=== PATIENT | female | born 1985 | race Caucasian/White ===

== ENCOUNTER 2016-09-09 12:47 | Emergency (ER) | payer OTHER ==
[2016-09-09 13:41] VITALS: BP 146/58
[2016-09-09] MEDS ORDERED: Ketorolac INJ* 60 MG/2 ML VIAL IM ONE (13:54)
--- NOTE | 2016-09-09 13:58 | UC ---
Back Pain HPI - HPI Summary HPI Summary: patient fell about 90 minutes ago, has bilateral leg pain and cannot get comfortable. has hx of lumbar suregery on l4 and l5 - History of Current Complaint Chief Complaint: UCBackPain Stated Complaint: LEGS TINGLING,LOW BACK COMPLAINT (FALL) Time Seen by Provider: 09/09/16 13:52 Hx Last Menstrual Period: 08/10/16 - Allergies/Home Medications Allergies/Adverse Reactions: Allergies Allergy/AdvReac Type Severity Reaction Status Date / Time Amoxicillin Allergy Severe Hives Verified 09/09/16 13:42 Clavulanic Acid Allergy Severe GI Verified 09/09/16 13:42 [From Augmentin] symptoms,fever Adhesive Tape Allergy Intermediate Rash Verified 09/09/16 13:42 Clindamycin Allergy Mild Nausea And Verified 09/09/16 13:42 Vomiting Tramadol Allergy N/V Verified 09/09/16 13:42 Home Medications: Home Medications Sertraline* [Zoloft*] 100 mg PO DAILY 09/09/16 [History Confirmed 09/09/16] hydrOXYzine HCL TAB* [Atarax 10 MG TAB*] 10 - 20 mg PO TID PRN 09/09/16 [ History Confirmed 09/09/16] traZODone TAB* [Desyrel TAB*] 150 mg PO BEDTIME 09/09/16 [History Confirmed ] PMH/Surg Hx/FS Hx/Imm Hx Endocrine History Of: Reports: Diabetes - TYPE 2, CONTROLLED WITH DIET Denies: Thyroid Disease, Hyperthyroidism, Hypothyroidism, Dyslipidemia Cardiovascular History Of: Denies: Cardiac Disorders, Hypertension, Pacemaker/ICD, Myocardial Infarction , Congestive Heart Failure, Atrial Fibrillation, Deep Vein Thrombosis, Bleeding Disorders Respiratory History Of: Denies: COPD, Asthma, Bronchitis, Pneumonia, Pulmonary Embolism GI/ History Of: Denies: Gastroesophageal Reflux, Ulcer, Gastrointestinal Bleed, Gall Bladder Disease, Kidney Stones, Diverticulitis, Renal Disease, Urosepsis Neurological History Of: Reports: Migraine - R/T SLEEP APNEA Denies: TIA, CVA, Dementia, Seizures Psychological History Of: Reports: Anxiety - ON MEDS, Depression - ON MEDS Cancer History Of: Denies: Lung Cancer, Colorectal Cancer, Breast Cancer, Prostate Cancer, Cervical Cancer Other History Of: Anticoagulant Therapy Negative For: HIV, Hepatitis B, Hepatitis C - Surgical History Surgical History: Yes Surgery Procedure, Year, and Place: 1996 TONSILLECTOMY AND ADENOIDECTOMY, [place] 2003 [facility]CTION, [facility] WISDOM TEETH EXTRACTION, [id number] LEFT KNEE SURGERY, [place] LOWER LUMBAR SURGERY September. ganglion cyst removed Right wrist summer 2014. R wrist surgery. GANGLION 2003, [facility] - Family History Known Family History: Positive: None, Hypertension, Diabetes - Social History Alcohol Use: Occasionally Substance Use Type: None Smoking Status (MU): Heavy Every Day Tobacco Smoker Type: Cigarettes Amount Used/How Often: <1/2 ppd Length of Time of Smoking/Using Tobacco: 15 YEARS Have You Smoked in the Last Year: Yes Household Exposure Type: Cigarettes - Immunization History Most Recent Influenza Vaccination: 03/2013 Review of Systems Constitutional: Negative Skin: Negative Eyes: Negative ENT: Negative Respiratory: Negative Cardiovascular: Negative Gastrointestinal: Negative Genitourinary: Negative Motor: Negative Neurovascular: Negative Musculoskeletal: Arthralgia, Decreased ROM, Edema, Myalgia Neurological: Negative Psychological: Negative All Other Systems Reviewed And Are Negative: Yes Physical Exam Triage Information Reviewed: Yes Appearance: Well-Nourished, Ill-Appearing, Pain Distress Vital Signs: Initial Vital Signs Temp 98.8 F 09/09/16 13:31 Pulse 81 09/09/16 13:31 Resp 18 09/09/16 13:31 BP 146/58 09/09/16 13:31 Pulse Ox 98 09/09/16 13:31 Vital Signs Reviewed: Yes Eye Exam: Normal Eyes: Positive: Conjunctiva Clear ENT Exam: Normal ENT: Positive: Normal ENT inspection, Hearing grossly normal, Pharynx normal, TMs normal Dental Exam: Normal Neck exam: Normal Neck: Positive: Supple, Nontender, No Lymphadenopathy Respiratory Exam: Normal Respiratory: Positive: Chest non-tender, Lungs clear, Normal breath sounds Cardiovascular Exam: Normal Cardiovascular: Positive: RRR, No Murmur, Pulses Normal Abdominal Exam: Normal Abdomen Description: Positive: Nontender, No Organomegaly, Soft Bowel Sounds: Positive: Present Musculoskeletal Exam: Normal Musculoskeletal: Positive: Strength Intact - able to raise legs and bear weight on both legs, numbness down right thigh, No Edema, ROM Limited @ - low back ext and flx Neurological Exam: Normal Neurological: Positive: Alert, Muscle Tone Normal Psychological Exam: Normal Skin Exam: Normal Back Pain Course/Dx - Course Course Of Treatment: hx obtained, exam performed, medication reviewed. xray obtained, urine preg negative, toradol given for pain relief with noticable relief. flexeril prescribed. recommend follow up with back surgeon if pain persists. - Differential Dx/Diagnosis Differential Diagnosis/HQI/PQRI: Arthritis, Herniated Disc, Strain, Sprain Provider Diagnoses: lumbar back spasm with radicuopathy. abnormal gait Discharge - Discharge Plan Condition: Stable Disposition: HOME Prescriptions: Cyclobenzaprine TAB* [Flexeril 10 MG TAB*] 10 mg PO TID PRN #21 tab PRN Reason: Spasms Additional Instructions: Take the medication as prescribed. Continue with your back exercises as tolerated. ice and heat as tolerated. Follow up with Dr Acevedo if pain and numbness persist.
--- NOTE | 2016-09-09 14:27 | RAD ---
HISTORY: Fall, numbness and tingling in lower extremities COMPARISONS: February 28, 2010 VIEWS: 5 , Frontal, lateral, coned-down lateral sacral, and bilateral oblique views of the lumbar spine. FINDINGS: ALIGNMENT: There is straightening of the lumbar lordosis. There is trace anterolisthesis of L4 on L5 VERTEBRAL BODIES: The vertebral body heights are normal. The interpedicular distances are normal. JOINTS: There is facet hypertrophy change at L4-L5 and L5-S1. INTERVERTEBRAL DISCS: There is mild diffuse loss of intervertebral disc height. SOFT TISSUE: Unremarkable. OTHER: The pelvis is unremarkable. The lung bases are clear. IMPRESSION: MILD DEGENERATIVE CHANGES, WITHOUT ACUTE OSSEOUS INJURY. IF SYMPTOMS PERSIST, RECOMMEND REPEAT IMAGING
== END 2016-09-09 15:13 | disposition home or self-care (01) ==
LOC: UCCORT 12:47
DX: M62.830 Muscle spasm of back (principal); M54.16 Radiculopathy, lumbar region; R26.9 Unspecified abnormalities of gait and mobility; Z32.02 Encounter for pregnancy test, result negative; R03.0 Elevated blood-pressure reading, without diagnosis of hypertension; Z88.1 Allergy status to other antibiotic agents; Z88.5 Allergy status to narcotic agent; F17.210 Nicotine dependence, cigarettes, uncomplicated
CPT/HCPCS: 72110; 84702; 96372; 99212; G0463; J1885

== ENCOUNTER 2016-11-19 08:45 | Observation (INO) | payer OTHER ==
--- NOTE | 2016-11-17 20:42 | HP ---
HISTORY AND PHYSICAL: DATE OF ADMISSION: CHIEF COMPLAINT: Back and left leg pain. HISTORY OF PRESENT ILLNESS: This 31-year-old lady fell back at the end of September developing recurren t pain in her back and left leg. Her past history is significant for undergoing a previous lumbar d iskectomy back on 10/10/13 for a herniated disk at L4-5 on the left side. At that time, she was leeroy te obese and has lost almost 100 pounds since I last saw her. She presented with extreme pain that did not respond to conservative measures. She was referred for an MRI scan which shows a large recu rrent disk herniation at the L4-5 level on the left side. She is being admitted at this time for el ective removal of her recurrent disk herniation. PAST MEDICAL HISTORY: Significant for previous morbid obesity as well as hypertension and depressio n. PAST SURGICAL HISTORY: Include previous tonsillectomy, section, and lumbar diskectomy. CURRENT MEDICATIONS: Include: 1. Bupropion hydrochloride 150 mg daily. 2. Loratadine 10 mg p.o. daily. 3. Topamax 50 mg p.o. daily. 4. Flexeril 10 mg p.o. twice daily as needed. 5. Buspirone 10 mg p.o. daily. 6. Zoloft 100 mg p.o. daily. 7. Metformin 500 mg p.o. daily. ALLERGIES: She is allergic to AUGMENTIN, CLARITHROMYCIN, AMOXICILLIN, TRAMADOL, and TAPE. FAMILY HISTORY: Family history was taken, it does not contribute to this illness. SOCIAL HISTORY: Revealed that she currently smokes daily and does not drink alcohol or take illicit drugs by history. REVIEW OF SYSTEMS: Her system review was significant primarily for her recurrent neurologic complai nts of back and leg pain. The remainder of her system review was performed, it does not contribute to this illness. PHYSICAL EXAMINATION GENERAL: She was noted to be markedly overweight lady complaining of back and leg pain. HEENT: Normal. NECK: Supple. LUNGS: Clear to auscultation. CARDIOVASCULAR: Exam revealed a regular rate and rhythm with no murmur. ABDOMEN: Protuberant with normal bowel sounds. No tenderness. EXTREMITIES: Reveal full range of active and passive motion. NEUROLOGICAL: Examination revealed a straight leg raise test to be markedly positive on the left si de at 30 degrees. Motor examination was normal. Sensory examination revealed a diminished pinprick sensation at the L5 dermatome on the left side. Reflexes were absent at the Achilles and 1+ at the knees with downgoing toes and no clonus. DIAGNOSTIC STUDIES: An MRI study was available for review and shows a large recurrent extruded dis k fragment extending behind the body of L5. IMPRESSION: Recurrent disk herniation. PLAN: She will be admitted at this time for elective surgery. [id number]/[facility] #: [id number]
[~2016-11-19 08:45] MED LIST: Clindamycin 900 MG IVPREMIX(* 900 MG/50 ML SDV IV ONE; Famotidine TAB* 20 MG ONE; Famotidine TAB* 20 MG PO ONE; Scopolamine 1.5 mg* PATCH ONE; Scopolamine 1.5 mg* PATCH TRANSDERM ONE; celeCOXIB CAP* 100 MG ONE; celeCOXIB CAP* 200 MG PO ONE
[2016-11-19] MEDS ORDERED: Buffered Lidocaine 1% SYRIN* 5 ML/SYR SYRINGE ONE (09:10)
[2016-11-19] MEDS ORDERED: Bacitracin IV* 50,000 UNITS INJ ONE (09:48)
[2016-11-19] MEDS ORDERED: Lidocain 1% EPI 1:100,000 * 30 ML MDV ONE (09:48)
[2016-11-19] MEDS ORDERED: Thrombin 5,000 UNITS* 1 APPLIC KIT - topical use - TOPICAL ONE (09:48)
[2016-11-19] MEDS ORDERED: Midazolam* 1 MG/ML 2 ML VIAL (2 MG) ONE (09:54)
[2016-11-19] MEDS ORDERED: fentaNYL* 50 MCG/ML 2 ML VIAL (100 MCG VIAL) ONE (09:54)
[2016-11-19] MEDS ORDERED: Lidocaine 2% PF * 5 ML VIAL ONE (09:56)
[2016-11-19] MEDS ORDERED: Atracurium* 10 MG/ML 10 ML VIAL ONE (09:56)
[2016-11-19] MEDS ORDERED: Dexamethasone IV* 4 MG/ML 1 ML (4 MG) ONE (09:56)
[2016-11-19] MEDS ORDERED: Ondansetron INJ* 2 MG/ML VIAL ONE (09:56)
[2016-11-19] MEDS ORDERED: Propofol* 10 MG/ML 20 ML BTL IV PUSH ONE (09:56)
[2016-11-19] MEDS ORDERED: DiMENhydriNATE IV* 50 MG/ML VIAL IV PUSH PRN (10:26)
[2016-11-19] MEDS ORDERED: fentaNYL* 50 MCG/ML 2 ML VIAL (100 MCG VIAL) IV PRN (10:26)
[2016-11-19] MEDS ORDERED: Ondansetron INJ* 2 MG/ML VIAL IV PRN (11:22)
[2016-11-19] MEDS ORDERED: Acetaminophen TAB* 325 MG PO PRN (11:22)
[2016-11-19] MEDS ORDERED: Mouth Piece, Nicotine* 1 EACH CARTRIDGE INH PRN (11:34)
[2016-11-19] MEDS ORDERED: Nicotine Inhaler* 10 MG AMP INH PRN (11:34)
[2016-11-19] MEDS ORDERED: DiMENhydriNATE IV* 50 MG/ML VIAL ONE (11:45)
[2016-11-19] MEDS ORDERED: HYDROmorphone* 1 MG/ML 1 ML SYR ONE (12:07)
[2016-11-19] MEDS: HYDROmorphone* 1 MG/ML 1 ML SYR IV PRN ×5 (12:08→12:55)
[2016-11-19] MEDS ORDERED: busPIRone TAB* 5 MG PO SCH (14:00)
[2016-11-19] MEDS: Nicotine PATCH 21 MG/24 HR* PATCH TRANSDERM SCH (14:34)
[2016-11-19] MEDS: busPIRone TAB* 10 MG PO SCH ×2 (14:35→21:20)
[2016-11-19] MEDS: oxyCODONE TAB* 5 MG TAB PO PRN ×2 (14:36→21:19)
[2016-11-19] MEDS ORDERED: Nicotine Patch Removal NOTE PATCH OFF SCH (21:00)
[2016-11-19] MEDS ORDERED: Cetirizine* 10 MG TAB PO SCH (21:00)
[2016-11-19] MEDS: Topiramate TAB(*) 100 MG PO SCH (21:21)
[2016-11-20] MEDS: oxyCODONE TAB* 5 MG TAB PO PRN ×2 (02:37→08:35)
[2016-11-20 08:22] VITALS: BP 118/54
[2016-11-20] MEDS: Topiramate TAB(*) 100 MG PO SCH (08:35)
[2016-11-20] MEDS: busPIRone TAB* 10 MG PO SCH (08:36)
[2016-11-20] MEDS: Nicotine PATCH 21 MG/24 HR* PATCH TRANSDERM SCH (08:46)
[2016-11-20] MEDS ORDERED: Sertraline* 50 MG TAB PO SCH (09:00)
[2016-11-20] MEDS ORDERED: Multivitamins/Minerals TAB PO SCH (09:00)
[2016-11-20] MEDS ORDERED: BuPROPion XL* 300 MG TAB.XL PO SCH (09:00)
--- NOTE | 2016-11-20 09:02 | PN ---
Progress Note - Progress Note SOAP: Subjective: [S/p lumbar repeat lumbar discectomy L4-5 left. POD #1. Feeling well and pain well controlled with PO pain medication. Pre-op left leg pain improved. Eating and drinking without difficulty. Ambulating independently.] Objective: [ Vital Signs: Temp Pulse Resp BP Pulse Ox 98.0 F 73 16 118/54 97 11/20/16 07:16 11/20/16 07:16 11/20/16 08:35 11/20/16 07:16 11/20/16 07:16 General: Alert and oriented. No distress. Neuro: Motor and sensory intact. Incision: Intact with nataliia. No infection.] Assessment: [Satisfactory post-op course.] Plan: [1. Discharge home today. 2. Discharge instructions discussed with the patient. ]
--- NOTE | 2016-11-21 00:01 | OP ---
OPERATIVE REPORT: DATE OF OPERATION: 11/19/16 DATE OF : 85 SURGEON: Benoit Acevedo MD INVESTMENT COUNSELOR: JAMAR Alfred ANESTHESIA: General. PRE-OP DIAGNOSIS: Recurrent herniated nucleus pulposus, L4-5 on the left. POST-OP DIAGNOSIS: Recurrent herniated nucleus pulposus, L4-5 on the left. OPERATIVE PROCEDURE: Redo lumbar diskectomy, L4-5 on the left with excision of recurrent disk herni ation with microdissection. DESCRIPTION OF PROCEDURE: After satisfactory general anesthesia was obtained, the patient was place d on the operating table in the prone position with the chest supported on the Reza frame and the back slightly flexed. The lumbar region was then clipped, prepped, and draped in a sterile manner f or lumbar laminectomy and a skin incision outlined along the previous incision from L4 to the sacrum . This incision was infiltrated with 1% Xylocaine with epinephrine after which it was turned down s harply to the level of the lumbar fascia. The fascia was divided along the spinous processes of L4, L5, and the sacrum and the paraspinal musculature and scar tissue dissected free from these posteri or elements using the periosteal elevator and monopolar cautery. The L5-S1 interspace was identifie d by palpating the sacrum and moving out to the first movable interspace. Perioperative imaging had suggested the inferior migration of large disk herniation extending behind the L5 vertebral body. The preoperative plan was to enter the L5-S1 level and explore the interspace from normal tissue int o the previously operated area. The inferior aspect of the L5 lamina was thinned out and the left si de of the L5 lamina removed with the Kerrison rongeur. Ligamentum flavum was also removed. This karla bled identification of the dura. At this point in the procedure, the operating microscope was broug ht into the field and the remainder of the procedure was done utilizing microdissection. There was adherent scar tissue at the L4-5 level and this was dissected free. Projecting into the axillary re gion of the L5 nerve root exposure was a very large disk herniation, which came out in 3 large fragm ents. The disk space itself was identified and entered and cleared of any loose disk material using pituitary forceps and curettes. At the conclusion of the decompression, the L5 nerve root was note d to be free in its course. After assuring adequate hemostasis, the wound was thoroughly irrigated, after which a piece of Gelfoam was placed over the laminectomy defect. The fascia was then reappro ximated with 0 Vicryl suture. The subcutaneous tissue was closed with 3-0 Vicryl suture and the ski n closed with skin clips. The estimated blood loss was less than 50 cc and final sponge, padding, a nd needle counts were correct. The patient was taken to the recovery room, extubated and in stable condition. [id number]/[facility] #: [id number]
--- NOTE | 2016-11-21 05:28 | DS ---
DISCHARGE SUMMARY: DATE OF ADMISSION: 11/19/16 DATE OF DISCHARGE: 11/20/16 DISCHARGE DIAGNOSES: 1. Recurrent herniated nucleus pulposus, L4-5, on the left. 2. Obstructive sleep apnea. SPECIAL PROCEDURES: Redo lumbar diskectomy, L4-5, on the left. HOSPITAL COURSE: This 31-year-old female was seen in the office with recurrent lumbar radiculopathy in a distribution similar to that of her preoperative condition. She had undergone lumbar diskecto my, L4-5, on the left operation on 10/10/13 and symptoms have now returned. She failed to improve w ith conservative treatment and was admitted at this time for elective surgical intervention. On the day of admission, she was taken to surgery where under general anesthesia, a redo lumbar diskectomy at L4-5 on the left operation was carried out. Postoperatively, she was feeling well. Pain was we ll controlled with oral pain medications. She was eating, drinking, and ambulating without difficul ty. Preoperative left lower extremity symptoms are improving. She was ambulating independently. O n the first postoperative day, she was discharged home to the care of the family. DISCHARGE INSTRUCTIONS: Including activity level and wound care were discussed with the patient and provided. She will be seen in the office in approximately 7 to 10 days for followup and staple rem oval. DISCHARGE MEDICATIONS: None. JAMAR SORENSON [id number]/[facility] #: [id number]
[2016-11-22] MEDS ORDERED: Scopolomine PATCH Remove* 1 NOTE MISC PATCH OFF ONE (06:00)
== END 2016-11-20 10:05 | disposition home or self-care (01) ==
LOC: OR 08:45 → SSU 13:43
PROVIDERS: ADMIT Neurological Surgery; ATTEND Neurological Surgery
PROC: 01NB0ZZ Release Lumbar Nerve, Open Approach (ICD-10-PCS; 2016-11-19)
PROC: 0SB20ZZ Excision of Lumbar Vertebral Disc, Open Approach (ICD-10-PCS; principal; 2016-11-19 09:45)
DX: M51.16 Intervertebral disc disorders with radiculopathy, lumbar region (principal); G47.33 Obstructive sleep apnea (adult) (pediatric); Z88.0 Allergy status to penicillin; Z88.8 Allergy status to other drugs, medicaments and biological substances; I10 Essential (primary) hypertension; F32.9 Major depressive disorder, single episode, unspecified; E11.9 Type 2 diabetes mellitus without complications; F17.210 Nicotine dependence, cigarettes, uncomplicated
CPT/HCPCS: 88304; 99406; A9270-GY; G0378; J1100; J1170; J1240; J2250; J2405; J2704; J3010

== ENCOUNTER 2017-07-12 15:08 | Emergency (ER) | payer OTHER ==
[2017-07-12 15:44] VITALS: BP 116/66
--- NOTE | 2017-07-12 16:02 | UC ---
General HPI - HPI Summary HPI Summary: Pt presents with 3 days progressive left ear pain and "swelling" in front of left ear and jaw. Pain worse with movemenet, palpation. no fevers, no chills. Ear fullness. no drainage. Pt with scab on skin - states "tries not to pick" No guan, vision changes. No analgesia taken. no intraoral edema. Pt has not lower teeth on right. Pt denies temp sensitivity to teeth. No trauma. Pt unable to get into PCP. Pt is 32 weeks . Pt states feels good, active baby movement - states had hiccups earlier Pts medications reviewed this visit - History of Current Complaint Chief Complaint: UCSkin Stated Complaint: EAR/JAW PAIN & SWELLING Time Seen by Provider: 07/12/17 15:46 Hx Obtained From: Patient Hx Last Menstrual Period: 08/10/16 Onset/Duration: Gradual Onset Timing: Constant Onset Severity: Mild Current Severity: Mild Pain Intensity: 4 - Allergy/Home Medications Allergies/Adverse Reactions: Allergies Allergy/AdvReac Type Severity Reaction Status Date / Time Amoxicillin Allergy Severe Hives Verified 07/12/17 15:44 Clavulanic Acid Allergy Severe GI Verified 07/12/17 15:44 [From Augmentin] symptoms,fever Adhesive Tape Allergy Intermediate Rash Verified 07/12/17 15:44 Clarithromycin Allergy Mild Nausea And Verified 07/12/17 15:44 Vomiting Tramadol Allergy Mild N/V Verified 07/12/17 15:44 Home Medications: Home Medications Vitamin [Calna] 1 tab PO DAILY 07/12/17 [History Confirmed 07/12/17] PMH/Surg Hx/FS Hx/Imm Hx Previously Healthy: Yes Other History Of: Anticoagulant Therapy Negative For: HIV, Hepatitis B, Hepatitis C - Surgical History Surgical History: Yes Surgery Procedure, Year, and Place: 1996 TONSILLECTOMY AND ADENOIDECTOMY, [place] 2003 CSECTION, [facility] 2004 WISDOM TEETH EXTRACTION, [id number] LEFT KNEE SURGERY, [place] LOWER LUMBAR SURGERY September. ganglion cyst removed Right wrist summer 2014. R wrist surgery. GANGLION 2002, [place] - Family History Known Family History: Positive: None, Hypertension, Diabetes - Social History Occupation: Unemployed Lives: With Family Alcohol Use: Occasionally Substance Use Type: None Smoking Status (MU): Heavy Every Day Tobacco Smoker Type: Cigarettes Amount Used/How Often: <1/2 ppd Length of Time of Smoking/Using Tobacco: 15 YEARS Have You Smoked in the Last Year: Yes Household Exposure Type: Cigarettes - Immunization History Most Recent Influenza Vaccination: 03/2013 Most Recent Pneumonia Vaccination: has had Review of Systems Constitutional: Negative ENT: Ear Ache, Other - right jaw pain All Other Systems Reviewed And Are Negative: Yes Physical Exam Triage Information Reviewed: Yes Appearance: Well-Appearing, No Pain Distress, Well-Nourished Vital Signs: Initial Vital Signs Temp 98.0 F 07/12/17 15:39 Pulse 112 07/12/17 15:39 Resp 16 07/12/17 15:39 BP 116/66 07/12/17 15:39 Pulse Ox 99 07/12/17 15:39 Vital Signs Reviewed: Yes Eye Exam: Normal Eyes: Positive: Conjunctiva Clear ENT: Positive: Pharynx normal, Nasal congestion, Nasal drainage, TM bulging, TM red, Other - right TM + fluid, + erythema no retraction No mastoid pain + lymphadenopathy anterior, inferior ear No TMJ pain + open/close jaw no fluctance , no discomfort with palpation of gumline. No bleeding, erythema. uvula midline no intraoral edema. Negative: TMs normal Dental Exam: Normal Neck exam: Normal Neck: Positive: Supple, Nontender, Other: - + submandicular LA Right. Negative : No Lymphadenopathy Respiratory Exam: Normal Respiratory: Positive: Chest non-tender, Lungs clear, Normal breath sounds, No respiratory distress, No accessory muscle use Cardiovascular Exam: Normal Cardiovascular: Positive: RRR, No Murmur, Pulses Normal Abdominal Exam: Normal Abdomen Description: Positive: Nontender, No Organomegaly, Soft, Other: - gravid Bowel Sounds: Positive: Present Musculoskeletal Exam: Normal Neurological Exam: Normal Neurological: Positive: Alert Psychological Exam: Normal Psychological: Positive: Normal Response To Family Skin Exam: Normal Skin: Positive: Other - pt with small scabbed lesion right jawline - no fluctuance, no drainage, no erythema - no discharge Course/Dx - Course Course Of Treatment: pt with right OM and lymphadenopathy. No intraoral lesion. Eugene tart cephalexin - pt - has taken previuosly without difficulty (amox = rash only). f/u with pcp this week. heat pack. return precautions. pt comfortable and in agreement with plan - Differential Dx - Multi-Symptom Provider Diagnoses: otitis media. lymphadenopathy Discharge - Discharge Plan Condition: Stable Disposition: HOME Prescriptions: Cephalexin CAP* [Keflex 500 CAP*] 500 mg PO TID #21 cap Patient Education Materials: Lymphadenopathy (ED), Serous Otitis Media (ED), Warm Compress or Soak (ED) Referrals: No Primary Care Phys,NOPCP [Primary Care Provider] - Additional Instructions: - stay well hydrated. Drink plenty of non-alcoholic, non-caffinated beverages - apply heat to the swollen are 2- 3times a day - Take antibiotics as prescribed - this medication may cause diarrhea - increase your fluids so you don't become dehydrated - Okay to take Tylenol every 6 hours for pain. Take with food. You should NOT take non-steroid anti-inflammatory medications (such as Motrin, ibuprofen, Advil , aleve, Naproxyn) while - Contact your doctor to schedule a recheck this week. Contact your doctor or go to the emergency department for fever, chills, increased pain, swelling or any other questions or concerns
== END 2017-07-12 16:15 | disposition home or self-care (01) ==
LOC: UCCORT 15:08
DX: H66.91 Otitis media, unspecified, right ear (principal); R59.1 Generalized enlarged lymph nodes; Z72.0 Tobacco use; Z72.89 Other problems related to lifestyle
CPT/HCPCS: 99212; G0463

== ENCOUNTER → 2019-07-03 11:58 | Day surgery (SDC) | payer OTHER ==
[~2019-07-03 11:58] MED LIST changes: +Acetaminophen / Codeine* #3 (300 MG/30 MG) TAB ONE; +Acetaminophen / Codeine* #3 (300 MG/30 MG) TAB PO ONE; +Buffered Lidocaine 1% SYRIN* 1 ML/SYRINGE INTRADERM ONE; +Bupivacaine 0.25% SDV* 30 ML ONE; -Clindamycin 900 MG IVPREMIX(* 900 MG/50 ML SDV IV ONE; +Dexamethasone IV* 4 MG/ML 1 ML (4 MG) ONE; +Famotidine IV* 10 MG/ML 2 ML (20 mg) IV ONE; +Famotidine IV* 10 MG/ML 2 ML (20 mg) ONE; -Famotidine TAB* 20 MG ONE; -Famotidine TAB* 20 MG PO ONE; +Gabapentin CAP(*) 400 MG PO ONE; +KETAMINE HCL* 50 MG/ML 10 ML VIAL ONE; +Ketorolac INJ* 30 MG/ML 1 ML VIAL ONE; +Lactated Ringers 1000 ML Bag* 1,000 ML IV SCH; +Lidocaine 2% PF * 5 ML VIAL ONE; +Midazolam* 1 MG/ML 5 ML VIAL (5 MG) ONE; +Naloxone* 0.4 MG/ML 1 ML VIAL IV PRN; +Ondansetron INJ* 2 MG/ML VIAL IV PRN; +Ondansetron INJ* 2 MG/ML VIAL ONE; +Propofol* 10 MG/ML 20 ML BTL ONE; -Scopolamine 1.5 mg* PATCH ONE; -Scopolamine 1.5 mg* PATCH TRANSDERM ONE; -celeCOXIB CAP* 100 MG ONE; -celeCOXIB CAP* 200 MG PO ONE; +fentaNYL* 50 MCG/ML 2 ML VIAL (100 MCG VIAL) IV PRN; +fentaNYL* 50 MCG/ML 2 ML VIAL (100 MCG VIAL) ONE
[2019-07-03 17:06] VITALS: BP 156/89
--- NOTE | 2019-07-03 23:34 | OP ---
DATE OF OPERATION: 07/03/19 - [facility] DATE OF : 85 SURGEON: Saman Miguel MD PIERCING SPECIALIST: JAMAR Viveros ANESTHESIOLOGIST: Dr. Schaefer. ANESTHESIA: General. PRE-OP DIAGNOSES: 1. Right carpal tunnel syndrome. 2. Right middle finger ganglion cyst off the anterior aspect of the A2 camille. 3. Right middle trigger finger. POST-OP DIAGNOSES: 1. Right carpal tunnel syndrome. 2. Right middle finger ganglion cyst off the anterior aspect of the A2 camille. 3. Right middle trigger finger. OPERATIVE PROCEDURES: 1. Right endoscopic carpal tunnel release. 2. Right middle finger ganglion cyst excision. 3. Right middle trigger finger release. INDICATIONS: Ms. Jordan has the aforementioned conditions, they have been progressive. We had talked about risks and benefits. She wanted to proceed with surgery. ESTIMATED BLOOD LOSS: 2 mL. COMPLICATIONS: None. FINDINGS: See above and below. DESCRIPTION OF PROCEDURE: Ms. Jordan was seen in preoperative holding area. The correct site, side and procedures were identified. We came back to the operating room. The arm was prepped and draped in usual fashion and time-out was performed. The arm was exsanguinated with an Esmarch and the tourniquet was inflated. I went ahead and made a 1-cm incision just ulnar to the palmaris longus tendon. Dissection was carried down. The distal antebrachial fascia was split transversely bluntly and then a 2-prong skin hook was placed underneath that. The carpal tunnel was dilated open and then the MicroAire endoscopic carpal tunnel system was placed into the carpal tunnel. When I had it in the appropriate location, I elevated the blade and the release was carried out from distal to proximal. Once I had completed the release distally and confirmed it , I released the distal antebrachial fascia proximally with tenotomy scissors. At this point, everything was looking very good. The wound was irrigated out. The skin was closed with 4-0 Prolene suture and a Steri-Strip. Next, I made a V-shaped incision and raised a radially based flap off the palmar aspect of the middle finger MCP joint flexion crease. The ganglion cyst off the A2 camille was noted. The digital nerves were preserved. After I had raised my flap and sewn it back, I went ahead and incised the A1 camille in its entirety with the 15-blade. Some thick fascia proximally was released with tenotomy scissors. After the trigger finger was released, I went ahead and excised with the tenotomy scissors the ganglion cyst, this was sent off as a specimen. The area was cauterized where it came off the sheath. Everything was looking good at this point, so the wound was irrigated out. Skin was closed with 4-0 nylon suture, 0.25% Marcaine was infiltrated around the operative areas. Soft dressings were applied and she was taken to the recovery room in stable condition. [id number]/[facility] #: [id number] MTDD
== END | disposition home or self-care (01) ==
LOC: OR 11:58
PROVIDERS: ATTEND Orthopaedic Surgery Hand Surgery
DX: G56.01 Carpal tunnel syndrome, right upper limb (principal); M67.441 Ganglion, right hand; M65.331 Trigger finger, right middle finger; E11.8 Type 2 diabetes mellitus with unspecified complications; K76.0 Fatty (change of) liver, not elsewhere classified; K21.9 Gastro-esophageal reflux disease without esophagitis; M79.7 Fibromyalgia; D64.9 Anemia, unspecified; F41.8 Other specified anxiety disorders; M15.9 Polyosteoarthritis, unspecified; F17.210 Nicotine dependence, cigarettes, uncomplicated; Z88.1 Allergy status to other antibiotic agents; Z88.5 Allergy status to narcotic agent
CPT/HCPCS: 81025; 88304; A9270-GY; J1100; J1885; J2250; J2405; J2704; J3010; J3490